=== PATIENT | female | born 1985 | race Two or more races ===

== ENCOUNTER 2020-05-15 14:58 | Emergency (ER) | payer SELFPAY ==
[~2020-05-15] VITALS: Ht 154.9 cm; Wt 86.0 kg
[2020-05-15] MEDS ORDERED: IV NORMAL SALINE 1000ML BAG 1,000 ML IV SCH (15:30)
[2020-05-15] MEDS ORDERED: ACETAMINOPHEN 325 MG TABLET. PO ONE (15:45)
--- NOTE | 2020-05-15 15:57 | PHYS DOC ---
General Adult EDM: Chief Complaint: SKIN RASH/ABSCESS HPI: HPI: Patient is a 34 year old female who presents with patient states approximately 3 weeks ago got a right great toe ingrown toenail. She states that she went to [facility] and was placed on penicillin and then went back 4 days later and was placed on another antibiotic that she cannot remember the name of. Patient states that she is always had bilateral lower leg edema but is worsened. She states that it usually comes and goes. She states that yesterday a red lacy type rash has not appeared her bilateral legs that goes from the feet up to the knees and slightly above the knees. She states it is itchy. She states that her skin is tender to touch. She states that when you touch her skin it feels like " as if you are pushing down on a bruise". Patient does have a history of scoliosis states she uses a walker at home due to her imbalance on her feet. Patient states that she ran a fever yesterday but has not taken any Tylenol since yesterday. Her temperature here in the ED is 99.2. Patient states she has no pain until her legs are touched. Review of Systems: Review of Systems: Constitutional: + fever or chills. [] Eyes: Denies change in visual acuity. [] HENT: Denies nasal congestion or sore throat. [] Respiratory: Denies cough or shortness of breath. [] Cardiovascular: Denies chest pain. + Bilateral lower leg 2-3+ edema. [] GI: Denies abdominal pain, nausea, vomiting, bloody stools or diarrhea. [] : Denies dysuria. [] Musculoskeletal: Denies back pain or joint pain. + Leg pain with palpation [] Integument: + Bilateral leg red rash. + Right lower leg purple tent to skin [] Neurologic: Denies headache, focal weakness or sensory changes. [] Endocrine: Denies polyuria or polydipsia. [] Lymphatic: Denies swollen glands. [] Psychiatric: Denies depression or anxiety. [] Heart Score: Risk Factors: Risk Factors: DM, Current or recent (<one month) smoker, HTN, HLP, family history of CAD, obesity. Risk Scores: Score 0 - 3: 2.5% MACE over next 6 weeks - Discharge Home Score 4 - 6: 20.3% MACE over next 6 weeks - Admit for Clinical Observation Score 7 - 10: 72.7% MACE over next 6 weeks - Early Invasive Strategies Current Medications: Current Medications Medications (Trade) Dose Ordered Sig/Hyun Start Time Stop Time Status Last Admin Dose Admin Sodium Chloride 1,000 ml @ 1,000 mls/hr Q1H 05/15/20 15:30 05/15/20 16:29 UNV Physical Exam: PE: Constitutional: Well developed, well nourished, no acute distress, non-toxic appearance. [] HENT: Normocephalic, atraumatic, bilateral external ears normal, oropharynx moist, no oral exudates, nose normal. [] Eyes: PERRLA, EOMI, conjunctiva normal, no discharge. [] Neck: Normal range of motion, no tenderness, supple, no stridor. [] Cardiovascular:Heart rate tachycardic regular rhythm, no murmur. [] Lungs & Thorax: Bilateral breath sounds clear to auscultation [] Abdomen: Bowel sounds normal, soft, no tenderness, no masses, no pulsatile masses. [] Skin: Warm, dry, leg erythema, bilateral lower leg red lacy type rash. Right lower leg purple in color [] Back: No tenderness, no CVA tenderness. [] Extremities: Bilateral lower leg with palpation tenderness, no cyanosis, no clubbing, ROM intact, lateral lower leg 2-3+ edema. Right lower leg cap refill >2 [] Neurologic: Alert and oriented X 3, normal motor function, normal sensory function, no focal deficits noted. [] Psychologic: Affect normal, judgement normal, mood normal. [] EKG: EK and read by Dr. Clark as sinus rhythm and no STEMI. Radiology/Procedures: Radiology/Procedures: [] Impression: [facility] [address] [place], [place] [id number] IMAGING REPORT Signed PATIENT: EDSON CRUZCOUNT: [id number] : 1985 LOCATION: ER AGE: 34 SEX: F EXAM STATUS: REG ER ORD. PHYSICIAN: JUAN TELLO APRN REASON: swelling, purple discoloration PROCEDURE: DUPLEX LOWER EX ARTERIAL RIGHT Ultrasound venous system of the lower extremities 05/15/2020. Reason for exam: Pain and swelling. Color Doppler and spectral waveform analysis was performed along with real-time grayscale technique. The deep veins of both lower extremity show normal compressibility and normal Doppler flow and augmentation of flow extending from the common femoral segment to the popliteal segment. The visualized calf veins appear normal, although evaluation was limited by swelling and small vessel caliber. IMPRESSION: No evidence of DVT, with limitation of the exam as described above. Arterial Doppler study of the right lower extremity 05/15/2020. Reason for exam: Pain. Color Doppler and spectral waveform analysis was performed along with real-time grayscale technique. Visualization was limited by patient body habitus and swelling. Normal waveforms are seen from the common femoral artery through the SFA segment and popliteal segment. The proximal posterior tibial artery and peroneal branch could not be seen. Normal waveforms are shown at the distal posterior tibial segment. Waveforms are also seen as normal in the anterior tibial and dorsalis pedis segment. No focal velocity elevation is seen. IMPRESSION: Somewhat limited study in the calf. No evidence of vessel occlusion or stenosis. Electronically signed by: Sakshi King Jr., MD (05/15/2020 4:48 PM) [facility] DICTATED and SIGNED BY: SAKSHI KING Jr, MD DATE: 05/15/20 [id number] 0 Course & Med Decision Making: Course & Med Decision Making Pertinent Labs and Imaging studies reviewed. (See chart for details) See HPI. Patient has bilateral lower leg edema that is to to 3+. The right lower leg looks more purple in color compared to the left lower leg which looks like normal pink warm and dry skin. The extremity is warm and dry. I do feel a pulse in the right and left pedal. Cap refill seems slightly slower in the right lower leg than the left lower leg. Again tenderness with palpation to legs and does seem to have pitting edema. Patient has no weakness and is ambulatory. Patient can wiggle her toes. Patient denies any numbness or tingling. Patient denies focal weakness, headache, dizziness, chest pain, shortness of air, cough, abdominal pain, nausea, vomiting, diarrhea, injury. She states she did have some body aches yesterday when she had a fever. She is tachycardic in the 110s. Ultrasound shows no DVTs or clots in the legs. Blood work is unremarkable. I did have Dr. Heath Ganesh that when the patient fell. She states that she thinks that it is a type of reaction to possible medication as the patient just got done with her 2 different antibiotics. I gave the patient Solu-Medrol and Benadryl in the ED. Dr. Heath states the patient is stable to go home and to send her home with a Medrol Dosepak. [] Dragon Disclaimer: Dragon Disclaimer: This electronic medical record was generated, in whole or in part, using a voice recognition dictation system. Departure Departure Impression: Primary Impression: Rash and nonspecific skin eruption Additional Impression: Bilateral lower extremity edema Disposition: 01 DC HOME SELF CARE/HOMELESS Condition: STABLE Patient Instructions: Peripheral Edema, Rash, [id number] Additional Instructions: Follow-up with your primary care provider soon as possible. Take medication as prescribed and with food. If any of your symptoms worsen return to emergency room. Take Tylenol or ibuprofen for your pain or fever. Scripts Famotidine (PEPCID) 20 Mg Tablet 20 MG PO BID, #14 TAB Prov: JUAN TELLO APRN 05/15/20 Diphenhydramine Hcl (BENADRYL ALLERGY) 25 Mg Tablet 1 TAB PO BID, #14 TAB 0 Refills Prov: JUAN TELLO APRN 05/15/20 Methylprednisolone (MEDROL) 4 Mg Tab.ds.pk 1 PKG PO UD, #1 PKG Prov: JUAN TELLO APRN 05/15/20 JUAN TELLO APRN May 15, 2020 15:57
[2020-05-15 15:58] LABS: BASO % 1 % (0-3); EOS # 0.2 x10^3/uL (0.0-0.7); EOS % 3 % (0-3); HEMATOCRIT 39.5 % (36.0-47.0); LYMPH # 1.6 x10^3/uL (1.0-4.8); LYMPH % 21 % (24-48); MEAN CORPUSCULAR HEMOGLOBIN 28 pg (25-35); MEAN CORPUSCULAR HGB CONC 33 g/dL (31-37); MEAN CORPUSCULAR VOLUME 86 fL (79-100); MONO # 0.6 x10^3/uL (0.0-1.1); MONO % 8 % (0-9); NEUT % 67 % (31-73); PLATELET COUNT 299 x10^3/uL (140-400); RED BLOOD COUNT 4.61 x10^6/uL (3.50-5.40); RED CELL DISTRIBUTION WIDTH 14.6 % (11.5-14.5); WHITE BLOOD COUNT 7.4 x10^3/uL (4.0-11.0)
[2020-05-15 16:06] LABS: CALCIUM 8.4 mg/dL (8.5-10.1); CREATININE 0.6 mg/dL (0.6-1.0); GFR 114.4; PROTHROMBIN TIME PATIENT 13.3 SEC (11.7-14.0)
[2020-05-15 16:18] LABS: ALBUMIN/GLOBULIN RATIO 0.9 (1.0-1.7); C-REACTIVE PROTEIN 42.8 mg/L (0-3.3); TOTAL BILIRUBIN 0.3 mg/dL (0.2-1.0); TOTAL PROTEIN 8.3 g/dL (6.4-8.2)
--- NOTE | 2020-05-15 16:51 | RAD ---
Ultrasound venous system of the lower extremities 05/15/2020. Reason for exam: Pain and swelling. Color Doppler and spectral waveform analysis was performed along with real-time grayscale technique. The deep veins of both lower extremity show normal compressibility and normal Doppler flow and augmen tation of flow extending from the common femoral segment to the popliteal segment. The visualized krista f veins appear normal, although evaluation was limited by swelling and small vessel caliber. IMPRESSION: No evidence of DVT, with limitation of the exam as described above. Arterial Doppler study of the right lower extremity 05/15/2020. Reason for exam: Pain. Color Doppler and spectral waveform analysis was performed along with real-time grayscale technique. Visualization was limited by patient body habitus and swelling. Normal waveforms are seen from the common femoral artery through the SFA segment and popliteal segmen t. The proximal posterior tibial artery and peroneal branch could not be seen. Normal waveforms are s hown at the distal posterior tibial segment. Waveforms are also seen as normal in the anterior tibial and dorsalis pedis segment. No focal velocity elevation is seen. IMPRESSION: Somewhat limited study in the calf. No evidence of vessel occlusion or stenosis. Electronically signed by: Dm King Jr., MD (05/15/2020 4:48 PM) [facility]
--- NOTE | 2020-05-15 17:52 | EKG ---
[facility] [address] [place] [id number] Test Date: 2020-05-15 Test Time: 17:27:46 Pat Name: TERI CRUZ Department: Room: Gender: F [employer]: : 1985 Requested By: JUAN TELLO Order Number: [id number] Reading MD: Measurements Intervals Bassett Rate: 94 P: 139 WA: 128 QRS: 145 QRSD: 66 T: 146 QT: 330 QTc: 418 Interpretive Statements SINUS RHYTHM ABNORMAL RIGHT AXIS DEVIATION QRS(T) CONTOUR ABNORMALITY CONSISTENT WITH HIGH LATERAL INFARCT AGE UNDETERMINED CONSIDER INFERIOR INFARCT ABNORMAL ECG RI6.02 No previous ECG available for comparison
[2020-05-15] MEDS ORDERED: methylPREDNISolone SOD SUCC PF 125 MG/2 ML VIAL. IV ONE (18:00)
[2020-05-15] MEDS ORDERED: diphenhydrAMINE HCL 25 MG CAPSULE PO ONE (18:00)
[2020-05-15 18:49] VITALS: BP 127/77
--- NOTE | 2020-05-15 19:03 | RAD ---
Exam: Chest 2 views INDICATION: Edema TECHNIQUE: Frontal and lateral views the Comparisons: None FINDINGS: The cardiomediastinal silhouette and pulmonary vessels are within normal limits. Patchy airspace disease in the left midlung. No pleural effusion. IMPRESSION: Patchy mid left airspace disease may be infectious or inflammatory in etiology. Electronically signed by: Honorio Le MD (05/15/2020 7:01 PM) [facility]
[2020-05-15 19:23] LABS: BILIRUBIN,URINE NEGATIVE (NEG); CLARITY,URINE CLEAR; COLOR,URINE YELLOW; NITRITE,URINE NEGATIVE (NEG); PROTEIN,URINE NEGATIVE (NEG-TRACE); UROBILINOGEN,URINE 0.2 mg/dL (0.2 mg/dL)
[2020-05-15 19:35] LABS: BACTERIA,URINE MODERATE /HPF (0-FEW)
[2020-05-15 19:36] LABS: RBC,URINE RARE /HPF (0-2)
[2020-05-15] MEDS ORDERED: METH4TAB2 PO (19:44)
[2020-05-15] MEDS ORDERED: DIPH25TA64 PO (19:44)
[2020-05-15] MEDS ORDERED: FAMO-63 PO (19:45)
== END 2020-05-15 19:40 | disposition home or self-care (01) ==
LOC: ER 14:58
DX: R21 Rash and other nonspecific skin eruption (principal); R60.0 Localized edema; L60.0 Ingrowing nail
CPT/HCPCS: 36415; 71046; 80053; 81001; 83605; 83880; 84484; 85025; 85610; 86140; 87040; 87086; 93005; 93926; 93970; 96361; 96374; 99285; J2930; J7030; Q0163